=== PATIENT | female | born 2000 | race Caucasian/White ===

== ENCOUNTER 2022-12-15 10:45 | Emergency (ER) | payer OTHER ==
[2022-12-15] MEDS ORDERED: Sodium Chloride 0.9% 1000 ML 1,000 ML IV STA ×2 (11:05→11:29)
[2022-12-15] MEDS ORDERED: Reglan 10 MG/2 ML IV ONE (11:05)
[2022-12-15] MEDS ORDERED: Reglan 10 MG/2 ML ONE (11:14)
[2022-12-15] MEDS ORDERED: Sodium Chloride 0.9% 1000 ML 1,000 ML ONE ×2 (11:14→12:22)
[2022-12-15 11:20] LABS: Absolute Neutrophil Ct (ANC) 6.38 x10^3/uL (1.4-6.9); BASOPHIL % 0.6 % (0.0-0.4); Basophil (Absolute #) 0.05 x10^3/uL (0-0.4); Eosinophil % 1.3 % (0.00-5.0); Eosinophil (Absolute #) 0.11 x10^3/uL (0-0.5); Hematocrit 40.5 % (35-47); Hemoglobin 12.9 g/dL (12.0-16.0); IMMATURE GRAN # 0.03 x10^3u/L (0.00-0.03); IMMATURE GRAN % 0.3 % (0.00-0.4); Lymphocyte (Absolute #) 1.68 x10^3/uL (1.0-4.6); Lymphocytes % 19.1 % (24.0-44.0); Mean Corpuscular Hemoglobin 25.5 pg (26-32); Mean Corpuscular Hgb Concent. 31.9 g/dL (32-36); Mean Platelet Volume 9.1 fL (7.5-11.0); Monocyte (Absolute #) 0.54 x10^3/uL (0.0-1.3); Monocytes % 6.1 % (0.0-12.0); Neutrophil % 72.6 % (36.0-66.0); Platelet Count 315 x10^3/uL (150-450); Red Blood Count 5.06 x10^6/uL (4.1-5.4); Red Cell Distribution Width 13.4 % (11.5-14.0); White Blood Count 8.8 x10^3/uL (4.0-10.5)
[2022-12-15 11:39] LABS: ALBUMIN 4.6 g/dL (3.5-5.0); ALKALINE PHOSPHATASE 61 U/L (38-126); AMYLASE 66 U/L (30-110); ANION GAP 17.2 MEQ/L (5-15); BLOOD UREA NITROGEN 8 mg/dL (7-17); CHLORIDE 103 mmol/L (98-107); Calcium 9.6 mg/dL (8.4-10.2); Carbon Dioxide 22 mmol/L (22-30); Creatinine 1 0.67 mg/dL (0.52-1.04); EST GLOMERULAR FILTRATION RATE > 60.0 ML/MIN; Glucose 91 mg/dL (74-106); LIPASE 65 U/L (23-300); Potassium 3.7 mmol/L (3.5-5.1); SGOT/AST 20 U/L (14-36); SGPT/ALT 15 U/L (0-35); SODIUM 138 mmol/L (137-145); Total Protein 8.5 g/dL (6.3-8.2)
[2022-12-15 11:45] LABS: Appearance Cloudy (Clear); Bacteria Moderate /HPF (None Seen); Bilirubin Negative (Negative); Blood Negative (Negative); Epithelial Cells Moderate /HPF (None Seen); Glucose, Urine Negative (Negative); Ketones Negative (Negative); Leukocyte Esterase Small (Negative); Nitrite Negative (Negative); Protein,Urine Dip Trace (Negative); Specific Gravity >=1.030 (1.005-1.030); Urobilinogen 0.2 mg/dL (0.2); WBC 21-50 /HPF (0-5)
[2022-12-15 11:46] LABS: ADD URINE CULTURE? YES (NO)
[2022-12-15 11:49] VITALS: BP 114/69; PULSE 88; O2SAT 99
--- NOTE | 2022-12-15 12:39 | ERPHSYRPT ---
- History of Present Illness Time Seen by Provider: 12/15/22 10:55 Source: patient Exam Limitations: no limitations Patient Subjective Stated Complaint: Pt states "I have been vomiting for the past 4 to 5 weeks. I am 8 weeks and I just cannot keep anything down." Triage Nursing Assessment: Pt presented alert and and oriented X 3, skin pwd. Pt ambulates with an upright steady gait, able to speak in clear full sentences. Pt resting comfortablyon the bed. Physician History: Patient is a 22-year-old 1 para 0 at 8 weeks gestation who presents with hyperemesis gravidarum. She has not responded to Zofran. She is sent by Dr. Prasad to the ER for hydration. Timing/Duration: week(s) (5) Severity: severe Associated Symptoms: nausea, vomiting Allergies/Adverse Reactions: No Known Drug Allergies Allergy (Verified 12/15/22 10:58) Home Medications: Vortioxetine Hydrobromide [Brintellix] 10 mg PO DAILY 12/15/22 [History] Hx Tetanus, Diphtheria Vaccination/Date Given: Yes Hx Influenza Vaccination/Date Given: Yes Hx Pneumococcal Vaccination/Date Given: No Immunizations Up to Date: Yes Travel Risk - International Travel Have you traveled outside of the country in past 3 weeks: No - Coronavirus Screening Are you exhibiting any of the following symptoms?: Yes Symptoms: Vomiting/Diarrhea Close contact with a COVID-19 positive Pt in past 14-21 Days: No - Vaccine Status Have you recieved a Covid-19 vaccination: No Tissue Packer: Pfizer - Vaccination Dates Date of 2cond Vaccination (if applicable): 2020 - Review of Systems Constitutional: No Fever, No Chills Eyes: No Symptoms Ears, Nose, & Throat: No Symptoms Respiratory: No Cough, No Dyspnea Cardiac: No Chest Pain, No Edema, No Syncope Abdominal/Gastrointestinal: Nausea, Vomiting, No Abdominal Pain, No Diarrhea Genitourinary Symptoms: No Dysuria Musculoskeletal: No Back Pain, No Neck Pain Skin: No Rash Neurological: No Dizziness, No Focal Weakness, No Sensory Changes Psychological: No Symptoms Endocrine: No Symptoms All Other Systems: Reviewed and Negative - Past Medical History Pertinent Past Medical History: Yes Psycho-Social History: Depression - Past Surgical History Past Surgical History: No - Social History Smoking Status: Never smoker Exposure to second hand smoke: No Drug Use: none Patient Lives Alone: No - Female History Hx Last Menstrual Period: 10/20/2022 Hx Now: Yes Gestational Age: 8 week - Nursing Vital Signs Nursing Vital Signs: Initial Vital Signs Temperature 97.0 F 12/15/22 10:52 Pulse Rate 109 H 12/15/22 10:52 Respiratory Rate 20 12/15/22 10:52 Blood Pressure 116/86 12/15/22 10:52 O2 Sat by Pulse Oximetry 100 12/15/22 10:52 Pain Scale Pain Intensity 0 - Physical Exam General Appearance: mild distress, alert Eye Exam: PERRL/EOMI, eyes nml inspection Ears, Nose, Throat Exam: normal ENT inspection, TMs normal, pharynx normal, moist mucous membranes Neck Exam: normal inspection, non-tender, supple, full range of motion Respiratory Exam: normal breath sounds, lungs clear, No respiratory distress Cardiovascular Exam: regular rate/rhythm, normal heart sounds, normal peripheral pulses Gastrointestinal/Abdomen Exam: soft, normal bowel sounds, No tenderness, No mass Back Exam: normal inspection, normal range of motion, No CVA tenderness, No vertebral tenderness Extremity Exam: normal inspection, normal range of motion, pelvis stable Neurologic Exam: alert, oriented x 3, cooperative, normal mood/affect, nml cerebellar function, nml station & gait, sensation nml, No motor deficits Skin Exam: normal color, warm, dry, No rash Lymphatic Exam: No adenopathy SpO2: 99 - Course Nursing assessment & vital signs reviewed: Yes Ordered Tests: Active Orders 24 hr Category Date Time Status IV Insertion STAT Care 12/15/22 11:05 Active AMYLASE Stat Lab 12/15/22 11:16 Completed CBC W DIFF Stat Lab 12/15/22 11:16 Completed CMP Stat Lab 12/15/22 11:16 Completed CULTURE,URINE Stat Lab 12/15/22 11:16 Received LIPASE Stat Lab 12/15/22 11:16 Completed UA W/RFX UR CULTURE Stat Lab 12/15/22 11:16 Completed Medication Summary Discontinued Medications Generic Name Dose Route Start Last Admin Trade Name Freq PRN Reason Stop Dose Admin Sodium Chloride 1,000 mls @ 999 mls/hr 12/15/22 11:05 12/15/22 12:26 Sodium Chloride 0.9% 1000 Ml IV 12/15/22 12:05 Infused .Q1H1M STA Infusion Sodium Chloride Confirm 12/15/22 11:14 Sodium Chloride 0.9% 1000 Ml Administered 12/15/22 11:15 Dose 1,000 mls @ ud .ROUTE .STK-MED ONE Sodium Chloride 1,000 mls @ 999 mls/hr 12/15/22 11:29 12/15/22 12:23 Sodium Chloride 0.9% 1000 Ml IV 12/15/22 12:29 999 mls/hr .Q1H1M STA Administration Sodium Chloride Confirm 12/15/22 12:22 Sodium Chloride 0.9% 1000 Ml Administered 12/15/22 12:23 Dose 1,000 mls @ ud .ROUTE .STK-MED ONE Metoclopramide HCl 10 mg 12/15/22 11:05 12/15/22 11:15 Metoclopramide Hcl 10 Mg/2 Ml Vial IV 12/15/22 11:06 10 mg STAT ONE Administration Metoclopramide HCl Confirm 12/15/22 11:14 Metoclopramide Hcl 10 Mg/2 Ml Vial Administered 12/15/22 11:15 Dose 10 mg .ROUTE .STK-MED ONE Lab/Rad Data: Laboratory Result Diagrams 12/15/22 11:16 12/15/22 11:16 Laboratory Results 12/15/22 12/15/22 12/15/22 Range/Units 11:16 11:16 11:16 WBC 8.8 (4.0-10.5) x10^3/uL RBC 5.06 (4.1-5.4) x10^6/uL Hgb 12.9 (12.0-16.0) g/dL Hct 40.5 (35-47) % MCV 80.0 (78-100) fL MCH 25.5 L (26-32) pg MCHC 31.9 L (32-36) g/dL RDW 13.4 (11.5-14.0) % Plt Count 315 (150-450) x10^3/uL MPV 9.1 (7.5-11.0) fL Gran % 72.6 H (36.0-66.0) % Immature Gran % (Auto) 0.3 (0.00-0.4) % Nucleat RBC Rel Count 0.0 (0.00-0.1) % Eos # (Auto) 0.11 (0-0.5) x10^3/uL Immature Gran # (Auto) 0.03 (0.00-0.03) x10^3u/L Absolute Lymphs (auto) 1.68 (1.0-4.6) x10^3/uL Absolute Monos (auto) 0.54 (0.0-1.3) x10^3/uL Absolute Nucleated RBC 0.00 (0.00-0.01) x10^3u/L Lymphocytes % 19.1 L (24.0-44.0) % Monocytes % 6.1 (0.0-12.0) % Eosinophils % 1.3 (0.00-5.0) % Basophils % 0.6 (0.0-0.4) % Absolute Granulocytes 6.38 (1.4-6.9) x10^3/uL Basophils # 0.05 (0-0.4) x10^3/uL Sodium 138 (137-145) mmol/L Potassium 3.7 (3.5-5.1) mmol/L Chloride 103 (98-107) mmol/L Carbon Dioxide 22 (22-30) mmol/L Anion Gap 17.2 H (5-15) MEQ/L BUN 8 (7-17) mg/dL Creatinine 0.67 (0.52-1.04) mg/dL Estimated GFR > 60.0 ML/MIN Glucose 91 (74-106) mg/dL Calcium 9.6 (8.4-10.2) mg/dL Total Bilirubin 0.50 (0.2-1.3) mg/dL AST 20 (14-36) U/L ALT 15 (0-35) U/L Alkaline Phosphatase 61 (38-126) U/L Serum Total Protein 8.5 H (6.3-8.2) g/dL Albumin 4.6 (3.5-5.0) g/dL Amylase 66 (30-110) U/L Lipase 65 (23-300) U/L Urine Color Dark Yellow A (Yellow) Urine Appearance Cloudy A (Clear) Urine pH 5.0 (4.6-8.0) Ur Specific [place] >=1.030 A (1.005-1.030) Urine Protein Trace A (Negative) Urine Glucose (UA) Negative (Negative) mg/dL Urine Ketones Negative (Negative) Urine Blood Negative (Negative) Urine Nitrite Negative (Negative) Urine Bilirubin Negative (Negative) Urine Urobilinogen 0.2 (0.2) mg/dL Ur Leukocyte Esterase Small A (Negative) U Hyaline Cast (Auto) 3-5 A (0-2) /LPF Urine Microscopic RBC 3-5 (0-5) /HPF Urine Microscopic WBC 21-50 A (0-5) /HPF Ur Epithelial Cells Moderate A (None Seen) /HPF Calcium Oxalate Crystal 3-5 A (None Seen) /HPF Urine Bacteria Moderate A (None Seen) /HPF Urine Culture Reflexed YES (NO) - Progress Progress: improved Medical Desision Making - Diagnostic Testing Diagnostic test were ordered, analyzed, and reviewed by me: Yes - Risk of complications Low Risk: Low risk of morbidity from additional dx testing or treatment - Departure Departure Disposition: Home Clinical Impression: Hyperemesis gravidarum, Urinary tract infection affecting care of mother in first trimester, antepartum Condition: Stable Critical Care Time: No Referrals: OBED PRASAD DO [Primary Care Provider] - Follow up/PCP as directed Prescriptions: Cephalexin Mh 500 mg [Keflex 500 mg] 500 mg PO TID #21 cap Metoclopramide HCl 10 mg [Reglan 10 MG] 10 mg PO Q6H 10 Days #40 tablet
== END 2022-12-15 13:35 | disposition home or self-care (01) ==
LOC: ED 10:45
DX: O21.0 Mild hyperemesis gravidarum (principal); O23.41 Unspecified infection of urinary tract in pregnancy, first trimester; N39.0 Urinary tract infection, site not specified; Z3A.08 8 weeks gestation of pregnancy; Z79.899 Other long term (current) drug therapy
CPT/HCPCS: 36000; 36415; 80053; 81001; 82150; 83690; 85025; 87086; 96360; 96361; 96374; 99284

== ENCOUNTER 2023-01-02 14:55 | Emergency (ER) | payer OTHER ==
--- NOTE | 2023-01-02 15:11 | ERPHSYRPT ---
- History of Present Illness Time Seen by Provider: 01/02/23 15:11 Historian: patient, family Exam Limitations: no limitations Physician History: This is a 22-year-old white female patient of salesperson women's [employer] Dr. Prasad who she saw today in the office. Patient has a history of hyperemesis gravidarum. She was seen here in this emergency department for the same diagnosis on 12/15/2022. At that time she was approximately 8 weeks gestation. She had a urinary tract infection at that time. She was given a prescription of Keflex and Reglan orally. Patient states that she did use the Reglan but did not like its side effects and therefore wants to avoid the Reglan. Patient denies chest pain. She denies cough. She has no abdominal pain. She has had no abnormal vaginal discharge. We reviewed the clinic labs that were done and were visible. The only thing we could see that was performed today was a CBC. Patient and her salesperson women's dresses were concerned that she may be getting dehydrated after 2 episodes of vomiting this morning. Timing/Duration: today (Significant other) Activities at Onset: none Severity of Pain-Max: none Severity of Pain-Current: none Modifying Factors: Improves With: vomiting (X2) Associated Symptoms: nausea, vomiting, No diarrhea, No fever/chills, No shortness of breath, No weakness Previous symptoms: recently seen Allergies/Adverse Reactions: No Known Drug Allergies Allergy (Verified 01/02/23 15:17) Home Medications: Vortioxetine Hydrobromide [Brintellix] 10 mg PO DAILY 12/15/22 [History] Ondansetron ODT 4 MG [Zofran Odt 4 mg] 4 mg PO Q8H PRN PRN 01/02/23 [History] Hx Tetanus, Diphtheria Vaccination/Date Given: Yes Hx Influenza Vaccination/Date Given: Yes Hx Pneumococcal Vaccination/Date Given: No Travel Risk - International Travel Have you traveled outside of the country in past 3 weeks: No - Coronavirus Screening Are you exhibiting any of the following symptoms?: Yes Symptoms: Vomiting/Diarrhea Close contact with a COVID-19 positive Pt in past 14-21 Days: No - Vaccine Status Have you recieved a Covid-19 vaccination: No Roll Repairer: [employer]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[employer] Keeper - Vaccination Dates Date of 2cond Vaccination (if applicable): 2020 - Review of Systems Constitutional: No Symptoms Eyes: No Symptoms Ears, Nose, & Throat: No Symptoms Respiratory: No Symptoms Cardiac: No Symptoms Abdominal/Gastrointestinal: Nausea, Vomiting, No Abdominal Pain, No Diarrhea, No Constipation Genitourinary Symptoms: Musculoskeletal: No Symptoms Skin: No Symptoms Neurological: No Symptoms Psychological: No Symptoms Endocrine: No Symptoms Hematologic/Lymphatic: No Symptoms Immunological/Allergic: No Symptoms All Other Systems: Reviewed and Negative - Past Medical History Pertinent Past Medical History: Yes Psycho-Social History: Depression - Past Surgical History Past Surgical History: No - Social History Smoking Status: Never smoker Exposure to second hand smoke: No Drug Use: none Patient Lives Alone: No - Nursing Vital Signs Nursing Vital Signs: Initial Vital Signs Temperature 97.4 F 01/02/23 15:08 Pulse Rate 114 H 01/02/23 15:08 Blood Pressure 104/84 01/02/23 15:08 O2 Sat by Pulse Oximetry 96 01/02/23 15:08 Pain Scale Pain Intensity 0 - Physical Exam General Appearance: no apparent distress, alert, anxiety Eye Exam: PERRL/EOMI, eyes nml inspection Ears, Nose, Throat Exam: normal ENT inspection, moist mucous membranes Neck Exam: normal inspection, non-tender, supple, full range of motion Respiratory Exam: normal breath sounds, lungs clear, airway intact, No chest tenderness, No respiratory distress Cardiovascular Exam: tachycardia Gastrointestinal/Abdomen Exam: soft, normal bowel sounds, No tenderness Pelvic Exam: not done Rectal Exam: not done Back Exam: normal inspection, normal range of motion, No CVA tenderness, No vertebral tenderness Extremity Exam: normal inspection, normal range of motion, pelvis stable Neurologic Exam: alert, oriented x 3, cooperative, clean up supervisor II-XII nml as tested, normal mood/affect, nml cerebellar function, nml station & gait, sensation nml Skin Exam: normal color, warm, dry Lymphatic Exam: No adenopathy SpO2 Interpretation: normal O2 Delivery: Room Air - Course Nursing assessment & vital signs reviewed: Yes Ordered Tests: Active Orders 24 hr Category Date Time Status IV Insertion STAT Care 01/02/23 15:31 Active AMYLASE Stat Lab 01/02/23 15:00 Completed CMP Stat Lab 01/02/23 15:00 Completed LIPASE Stat Lab 01/02/23 15:00 Completed UA W/RFX UR CULTURE Stat Lab 01/02/23 16:01 Ordered Medication Summary Generic Name Dose Route Start Last Admin Trade Name Nathalie PRN Reason Stop Dose Admin Sodium Chloride 500 mls @ 500 mls/hr 01/02/23 16:46 01/02/23 16:47 Sodium Chloride 0.9% 500 Ml IV 01/02/23 17:45 500 mls/hr .Q1H ONE Administration Discontinued Medications Generic Name Dose Route Start Last Admin Trade Name Nathalie PRN Reason Stop Dose Admin Sodium Chloride 1,000 mls @ 999 mls/hr 01/02/23 15:31 01/02/23 16:45 Sodium Chloride 0.9% 1000 Ml IV 01/02/23 16:31 Infused .Q1H1M STA Infusion Sodium Chloride Confirm 01/02/23 15:40 Sodium Chloride 0.9% 1000 Ml Administered 01/02/23 15:41 Dose 1,000 mls @ ud .ROUTE .STK-MED ONE Sodium Chloride Confirm 01/02/23 16:47 Sodium Chloride 0.9% 500 Ml Administered 01/02/23 16:48 Dose 500 mls @ ud IV .STK-MED ONE Ondansetron HCl 4 mg 01/02/23 15:31 01/02/23 15:42 Ondansetron Hcl 4 Mg/2 Ml Vial IV 01/02/23 15:32 4 mg STAT ONE Administration Ondansetron HCl Confirm 01/02/23 15:40 Ondansetron Hcl 4 Mg/2 Ml Vial Administered 01/02/23 15:41 Dose 4 mg .ROUTE .STK-MED ONE Lab/Rad Data: Laboratory Result Diagrams 01/02/23 15:00 Laboratory Results 01/02/23 Range/Units 15:00 Sodium 135 L (137-145) mmol/L Potassium 3.2 L (3.5-5.1) mmol/L Chloride 102 (98-107) mmol/L Carbon Dioxide 20 L (22-30) mmol/L Anion Gap 15.8 H (5-15) MEQ/L BUN 7 (7-17) mg/dL Creatinine 0.61 (0.52-1.04) mg/dL Estimated GFR > 60.0 ML/MIN Glucose 142 H (74-106) mg/dL Calcium 9.5 (8.4-10.2) mg/dL Total Bilirubin 0.40 (0.2-1.3) mg/dL AST 24 (14-36) U/L ALT 16 (0-35) U/L Alkaline Phosphatase 55 (38-126) U/L Serum Total Protein 7.6 (6.3-8.2) g/dL Albumin 4.1 (3.5-5.0) g/dL Amylase 62 (30-110) U/L Lipase 63 (23-300) U/L - Progress Progress: improved Progress Note: 01/02/23 17:35 Patient's medical history is 1 of moderate complexity. The level of complexity and the work-up performed is based on the review review of the patient's past medical history, review of the patient's medication list, review of the patient's drug allergy list, history present illness and physical findings on examination. Work-up in this patient includes review of the patient's last visit here in the emergency department and the review of the patient's obstetric clinic visit today. In addition we placed an intravenous line, infused 1-1/2 L of normal saline solution, checked a CMP, amylase and lipase. I reviewed the results. Patient has no acute emergent medical issue at this time. Patient has Zofran at home. She will follow-up with her salesperson women[employer] dresses on 01/05/2023. P darrian can use her Zofran as prescribed. Patient is to start off with clear liquids then advance her diet slowly Counseled pt/family regarding: lab results, diagnosis, need for follow-up Medical Desision Making - Independent Historian Additional History obtained from: Spouse - Diagnostic Testing Diagnostic test were ordered, analyzed, and reviewed by me: Yes - Risk of complications Minimal Risk: Minimal risk of morbidity - Departure Departure Disposition: Home Clinical Impression: Vomiting during , Mild dehydration Condition: Stable Critical Care Time: No Referrals: MIRTA FOLEY MD [Primary Care Provider] - Follow up/PCP as directed Additional Instructions: Clear liquid diet and then advance your diet slowly. Use your Zofran as prescri bed. Follow-up with your salesperson women[employer] dresses on 01/05/2023 for further evaluation and management.
[2023-01-02] MEDS ORDERED: Zofran 4 MG/2 ML VIAL IV ONE (15:31)
[2023-01-02] MEDS ORDERED: Sodium Chloride 0.9% 1000 ML 1,000 ML IV STA (15:31)
[2023-01-02] MEDS ORDERED: Zofran 4 MG/2 ML VIAL ONE (15:40)
[2023-01-02] MEDS ORDERED: Sodium Chloride 0.9% 1000 ML 1,000 ML ONE (15:40)
[2023-01-02 16:29] LABS: ALBUMIN 4.1 g/dL (3.5-5.0); ALKALINE PHOSPHATASE 55 U/L (38-126); AMYLASE 62 U/L (30-110); ANION GAP 15.8 MEQ/L (5-15); BLOOD UREA NITROGEN 7 mg/dL (7-17); CHLORIDE 102 mmol/L (98-107); Calcium 9.5 mg/dL (8.4-10.2); Carbon Dioxide 20 mmol/L (22-30); Creatinine 1 0.61 mg/dL (0.52-1.04); EST GLOMERULAR FILTRATION RATE > 60.0 ML/MIN; Glucose 142 mg/dL (74-106); LIPASE 63 U/L (23-300); Potassium 3.2 mmol/L (3.5-5.1); SGOT/AST 24 U/L (14-36); SGPT/ALT 16 U/L (0-35); SODIUM 135 mmol/L (137-145); Total Protein 7.6 g/dL (6.3-8.2)
[2023-01-02] MEDS ORDERED: Sodium Chloride 0.9% 500 ML 500 ML IV ONE ×2 (16:46→16:47)
[2023-01-02 17:07] VITALS: BP 95/71; PULSE 91; O2SAT 99
== END 2023-01-02 17:56 | disposition home or self-care (01) ==
LOC: ED 14:55
DX: O21.9 Vomiting of pregnancy, unspecified (principal); Z3A.11 11 weeks gestation of pregnancy; E86.0 Dehydration; Z79.899 Other long term (current) drug therapy
CPT/HCPCS: 36000; 36415; 80053; 82150; 83690; 96360; 96361; 96374; 99284; J2405

== ENCOUNTER 2023-07-21 02:00 | Inpatient (IN) | payer OTHER, MEDICAID ==
[2023-07-21] MEDS ORDERED: Nubain 10 MG/ML IV PRN (07:00)
[2023-07-21] MEDS ORDERED: STADOL 2 MG IV PRN (07:00)
[2023-07-21] MEDS ORDERED: Zofran 4 MG/2 ML VIAL IV PRN (07:00)
[2023-07-21 08:24] LABS: Absolute Neutrophil Ct (ANC) 5.31 x10^3/uL (1.4-6.9); BASOPHIL % 0.5 % (0.0-0.4); Basophil (Absolute #) 0.04 x10^3/uL (0-0.4); Eosinophil % 1.8 % (0.00-5.0); Eosinophil (Absolute #) 0.14 x10^3/uL (0-0.5); Hemoglobin 9.3 g/dL (12.0-16.0); IMMATURE GRAN # 0.03 x10^3u/L (0.00-0.03); IMMATURE GRAN % 0.4 % (0.00-0.4); Lymphocyte (Absolute #) 1.81 x10^3/uL (1.0-4.6); Lymphocytes % 23.4 % (24.0-44.0); Mean Cell Volume 75.4 fL (78-100); Mean Corpuscular Hemoglobin 23.4 pg (26-32); Mean Platelet Volume 11.1 fL (7.5-11.0); Monocytes % 5.2 % (0.0-12.0); Neutrophil % 68.7 % (36.0-66.0); Platelet Count 235 x10^3/uL (150-450); Red Blood Count 3.98 x10^6/uL (4.1-5.4); Red Cell Distribution Width 14.8 % (11.5-14.0); White Blood Count 7.7 x10^3/uL (4.0-10.5)
[2023-07-21 08:58] LABS: Amphetamine,Urine NEGATIVE (NEGATIVE); Barbiturate,Urine NEGATIVE (NEGATIVE); Benzodiazepine,Urine NEGATIVE (NEGATIVE); Cocaine,Urine NEGATIVE (NEGATIVE); Methadone,Urine NEGATIVE (NEGATIVE); Opiate,Urine NEGATIVE (NEGATIVE); PCP,Urine NEGATIVE (NEGATIVE); THC,Urine NEGATIVE (NEGATIVE)
[2023-07-21 09:18] LABS: ABO TYPING A; Antibody Screen NEGATIVE (NEGATIVE); RH TYPING POSITIVE
[2023-07-21] MEDS: Lactated Ringers 1,000 ML IV SCH ×2 (14:00→20:51)
[2023-07-21] MEDS ORDERED: Lactated Ringers 1,000 ML IV ONE (19:00)
[2023-07-21] MEDS ORDERED: Ephedrine Sulfate 50 MG/ML IV PRN (19:00)
[2023-07-21] MEDS ORDERED: FENTANYL 2 MCG-BUPIV 0.125%-NS 250 ML Epidur 250 ML EPIDURAL SCH (19:00)
[2023-07-21] MEDS ORDERED: TUCKS TP PRN (22:00)
[2023-07-22] MEDS ORDERED: CEFAZOLIN 2 GM-D5W BAG** 2 GM/50 ML ML IV ONE (02:11)
[2023-07-22] MEDS ORDERED: Reglan 10 MG/2 ML IV SCH (02:15)
[2023-07-22] MEDS ORDERED: Pepcid 20 MG VIAL IV SCH (02:15)
[2023-07-22] MEDS ORDERED: SOD CITRATE-CITRIC ACID SOLN PO SCH (02:15)
[2023-07-22] MEDS: Lactated Ringers 1,000 ML IV SCH (02:23)
[2023-07-22] MEDS ORDERED: CEFAZOLIN 2 GM-D5W BAG** 2 GM/50 ML ML IV SCH (02:30)
[2023-07-22 02:35] LABS: INR 0.88 (0.8-3.0); PROTIME 9.7 SECONDS (9.4-12.5); PTT 24.4 SECONDS (25.1-36.5)
[2023-07-22] MEDS ORDERED: TORAdol 30 mg Injection ONE (02:37)
[2023-07-22] MEDS ORDERED: Decadron 4 MG INJ ONE ×2 (02:37→03:06)
[2023-07-22] MEDS ORDERED: SUBLIMAZE 100 MCG/2 ML ONE ×2 (02:37→03:38)
[2023-07-22] MEDS ORDERED: Zofran 4 MG/2 ML VIAL ONE (02:37)
[2023-07-22] MEDS ORDERED: BRIDION 200MG/2ML IV ONE (02:37)
[2023-07-22] MEDS ORDERED: Xylocaine-Mpf 2% 5 Ml Vial ONE (02:37)
[2023-07-22] MEDS ORDERED: DIPRIVAN 200 MG/20 ML IV ONE (02:37)
[2023-07-22] MEDS ORDERED: Zemuron 100 MG/10 ML ONE (02:37)
[2023-07-22] MEDS ORDERED: Pitocin 10 UNITS/ML ONE (03:00)
[2023-07-22] MEDS ORDERED: Ephedrine Sulfate 50 MG/ML ONE (03:04)
[2023-07-22] MEDS ORDERED: Naropin 0.5% 30 ML VIAL ONE (03:06)
[2023-07-22] MEDS ORDERED: DEXMEDETOMIDINE 80 MCG/20ML-NS IV ONE (03:06)
[2023-07-22] MEDS ORDERED: Hydromorphone 1 mg/ml Injection ONE (03:38)
[2023-07-22] MEDS ORDERED: CLARITIN 10 MG PO PRN (04:00)
[2023-07-22] MEDS ORDERED: BENADRYL 50 MG/ML IV PRN (04:00)
[2023-07-22] MEDS ORDERED: Narcan 0.4 MG/ML IV PRN (04:00)
[2023-07-22] MEDS ORDERED: HOLD NARCOTIC ANALGESICS AND SEDATIVES X24 HR MC PRN (04:00)
[2023-07-22] MEDS ORDERED: DEMEROL 50 MG IV PRN (04:00)
[2023-07-22] MEDS ORDERED: PERCOCET TABLET 5/325MG PO PRN (04:00)
[2023-07-22] MEDS ORDERED: MORPHINE SULFATE 2 MG INJ IV PRN (04:00)
[2023-07-22 04:49] LABS: Bacteria None Seen /HPF (None Seen); Epithelial Cells Rare /HPF (None Seen); Hyaline Casts NONE SEEN /LPF (0-2); RBC 51-100 /HPF (0-5)
[2023-07-22 04:50] LABS: Appearance Clear (Clear); Bilirubin Negative (Negative); Ketones Negative (Negative); Leukocyte Esterase Negative (Negative); Nitrite Negative (Negative); Protein,Urine Dip Negative (Negative); Urobilinogen 0.2 mg/dL (0.2)
[2023-07-22 04:51] LABS: ADD URINE CULTURE? ORDERED SEPARATELY (NO); Blood Moderate (Negative); Glucose, Urine Negative (Negative)
[2023-07-22] MEDS ORDERED: LANSINOH 40 GM TOP PRN (08:00)
[2023-07-22] MEDS ORDERED: PITOCIN 30 UNITS/ LR 500 ML 30 UNITS/500 ML PLAST..BAG IV SCH ×2 (08:00→09:00)
[2023-07-22] MEDS ORDERED: Dermoplast Spray TP PRN (08:00)
[2023-07-22] MEDS ORDERED: Dextrose 5%-Lr IV Solution 1000 ML 1,000 ML IV SCH (08:00)
[2023-07-22] MEDS ORDERED: TYLENOL EXTRA STRENGTH 500 MG PO PRN (08:00)
[2023-07-22] MEDS: Docusate Sodium 100 MG PO SCH (09:10)
--- NOTE | 2023-07-22 09:42 | OP ---
SURGERY DATE/TIME: 07/22/2023 0237 PREOPERATIVE DIAGNOSIS: Intrauterine at 39 weeks and 5 days with non-reassuring heart rate tracing with repetitive deceleration. POSTOPERATIVE DIAGNOSIS: Intrauterine at 39 weeks and 5 days with non-reassuring heart rate tracing with repetitive deceleration with a true knot in the nuchal cord with meconium noted. PROCEDURE: Primary section, low flap transverse uterine incision, Pfannenstiel skin incision. SURGEON: Nico Prasad D.O. WELDER 2ND SHIFT: Mirian Denton, surgical technicians. ANESTHESIA: General. QUANTITATIVE BLOOD LOSS: 951 cc. COMPLICATIONS: None. INDICATIONS: The risks, benefits, indications and alternatives of the procedure were reviewed with the patient prior to the procedure. The patient understood the risk of infection, bleeding, bowel injury, bladder injury, pelvic infection and thromboembolic disorder associated with this surgery and desires to have this surgery as a possible means to alleviate her current medical condition. DESCRIPTION OF PROCEDURE AND FINDINGS: At this point the patient was taken in STAT situation to the operating room where she was given general anesthesia and was found to be adequate. She was then prepared and draped in normal sterile fashion in the dorsal supine position with leftward tilt. A Pfannenstiel skin incision is made with a scalpel and carried through to the underlying layer of the fascia with a Bovie. The fascia was then incised in the midline and the incision extended laterally with Clark scissors. The superior aspect of the fascial incision was then grasped Emiliano clamps elevated and the underlying rectus muscles dissected off bluntly. Attention is then turned to the inferior aspect of this incision which in similar fashion was grasped, tented up with Emiliano clamps and the rectus muscles dissected off bluntly. The rectus muscles were then at the midline and the peritoneum identified, tented up and entered sharply with Metzenbaum scissors. The peritoneal incision was then extended superiorly and inferiorly with good visualization of the bladder. The bladder blade was then inserted and vesicouterine peritoneum identified, grasped with pickups and entered sharply with Metzenbaum scissors. This incision was then extended laterally and bladder flap created digitally. The bladder blade was then reinserted and the lower uterine segment incised in transverse fashion with a scalpel. The uterine incision was then extended laterally with bandage scissors. The bladder blade was then removed and infants head was delivered atraumatically and was noted to have a true knot, loose nuchal cord and meconium that was noted. The nose and mouth were suctioned with bulb suction and the cord clamped and cut. The infant was handed off to the awaiting nurses and family provider. The placenta was then removed manually. The uterus exteriorized and cleared of all clots and debris. The uterine incision was repaired with 1-0 chromic in a running locked fashion. A second layer of the same suture was used to obtain excellent hemostasis. The uterus is then returned to the abdomen. The gutters were cleared of clots and the peritoneal muscles were closed in interrupted fashion using 2-0 chromic suture. The fascia was re-approximated with 0 Vicryl in a running fashion. The subcutaneous layer was closed with 3-0 Vicryl suture and the skin was closed with absorbable boris called INSORB. The patient tolerated the procedure well. Sponge, lap, needle and instrument counts were correct x2. The patient was then taken to the recovery room in stable condition. The patient delivered a live baby boy at 0451 hours. 's were 7 at 1 minute and 8 at 5 minutes.
[2023-07-22] MEDS ORDERED: FERREX 150 PO SCH (10:00)
[2023-07-22] MEDS ORDERED: MOTRIN 400 MG PO PRN (10:00)
[2023-07-22] MEDS ORDERED: CORTISONE 1% CREAM TP PRN (10:00)
[2023-07-22] MEDS ORDERED: Mylicon 80MG PO PRN (10:00)
[2023-07-22] MEDS: KEFZOL 1 GM/50 ML PREMIX** 1 GM/50 ML IVPB IV SCH ×2 (10:53→18:29)
[2023-07-22 15:21] LABS: Absolute Neutrophil Ct (ANC) 16.85 x10^3/uL (1.4-6.9); BASOPHIL % 0.1 % (0.0-0.4); Basophil (Absolute #) 0.02 x10^3/uL (0-0.4); Eosinophil % 0.1 % (0.00-5.0); Eosinophil (Absolute #) 0.01 x10^3/uL (0-0.5); Hematocrit 25.5 % (35-47); Hemoglobin 7.9 g/dL (12.0-16.0); IMMATURE GRAN # 0.09 x10^3u/L (0.00-0.03); IMMATURE GRAN % 0.5 % (0.00-0.4); Lymphocyte (Absolute #) 0.74 x10^3/uL (1.0-4.6); Mean Cell Volume 76.6 fL (78-100); Mean Corpuscular Hemoglobin 23.7 pg (26-32); Mean Platelet Volume 10.8 fL (7.5-11.0); Monocyte (Absolute #) 0.61 x10^3/uL (0.0-1.3); Monocytes % 3.3 % (0.0-12.0); Platelet Count 231 x10^3/uL (150-450); Red Blood Count 3.33 x10^6/uL (4.1-5.4); Red Cell Distribution Width 15.2 % (11.5-14.0); White Blood Count 18.3 x10^3/uL (4.0-10.5)
[2023-07-22] MEDS: FEOSOL 325 MG PO SCH (16:30)
[2023-07-23 05:17] LABS: Absolute Neutrophil Ct (ANC) 11.39 x10^3/uL (1.4-6.9); BASOPHIL % 0.1 % (0.0-0.4); Basophil (Absolute #) 0.02 x10^3/uL (0-0.4); Eosinophil % 0.2 % (0.00-5.0); Eosinophil (Absolute #) 0.03 x10^3/uL (0-0.5); Hematocrit 22.8 % (35-47); IMMATURE GRAN # 0.09 x10^3u/L (0.00-0.03); IMMATURE GRAN % 0.6 % (0.00-0.4); Lymphocyte (Absolute #) 2.74 x10^3/uL (1.0-4.6); Lymphocytes % 18.2 % (24.0-44.0); Mean Cell Volume 76.3 fL (78-100); Mean Corpuscular Hemoglobin 23.4 pg (26-32); Mean Corpuscular Hgb Concent. 30.7 g/dL (32-36); Mean Platelet Volume 10.9 fL (7.5-11.0); Monocyte (Absolute #) 0.81 x10^3/uL (0.0-1.3); Monocytes % 5.4 % (0.0-12.0); Neutrophil % 75.5 % (36.0-66.0); Platelet Count 247 x10^3/uL (150-450); Red Blood Count 2.99 x10^6/uL (4.1-5.4); Red Cell Distribution Width 15.5 % (11.5-14.0); White Blood Count 15.1 x10^3/uL (4.0-10.5)
--- NOTE | 2023-07-23 07:48 | PCM.NOTE ---
Date and Time: 07/23/23746 Subjective Assessment: pod 1 sp csection pt resting in her chair able to ambulate and tolerate diet vss afebrile abd; soft incision c/d/intact uterus; firm lochia; mild hgb/ 7.0 a/p sp csection pod 1 with anemia will anticipate discharge tomorrow will continue iron supplementation tid OBJECTIVE DATA Vital Signs: Vital Signs - 24 hr Temp Pulse Resp BP Pulse Ox 07/23/23 04:00 98.1 F 90 20 124/73 98 07/22/23 19:37 98.4 F 115 H 16 125/81 98 07/22/23 15:00 98 07/22/23 14:00 98.2 F 92 H 18 120/76 98 07/22/23 13:00 99 07/22/23 12:00 100 07/22/23 11:00 99 07/22/23 10:00 100 07/22/23 09:00 98 07/22/23 08:00 97.7 F 64 18 134/83 99 Pain Assessment - Last Documented Pain Intensity [Anterior] 7 Pain Intensity 1 Pain Scale Used 0-10 Pain Scale Intake and Output: Intake & Output 07/20/23 07/21/23 07/22/23 07/23/23 11:59 11:59 11:59 11:59 Intake Total 4897 1700 Output Total 1222 600 Balance 3675 1100 Weight 83.915 kg 83.915 kg Lab Results: Lab Results-Last 24 Hours 07/22/23 07/23/23 Range/Units 15:15 05:05 WBC 18.3 H 15.1 H (4.0-10.5) x10^3/uL RBC 3.33 L 2.99 L (4.1-5.4) x10^6/uL Hgb 7.9 L 7.0 L* (12.0-16.0) g/dL Hct 25.5 L 22.8 L (35-47) % MCV 76.6 L 76.3 L (78-100) fL MCH 23.7 L 23.4 L (26-32) pg MCHC 31.0 L 30.7 L (32-36) g/dL RDW 15.2 H 15.5 H (11.5-14.0) % Plt Count 231 247 (150-450) x10^3/uL MPV 10.8 10.9 (7.5-11.0) fL Gran % 92.0 H 75.5 H (36.0-66.0) % Immature Gran % (Auto) 0.5 H 0.6 H (0.00-0.4) % Nucleat RBC Rel Count 0.0 0.0 (0.00-0.1) % Eos # (Auto) 0.01 0.03 (0-0.5) x10^3/uL Immature Gran # (Auto) 0.09 H 0.09 H (0.00-0.03) x10^3u/L Absolute Lymphs (auto) 0.74 L 2.74 (1.0-4.6) x10^3/uL Absolute Monos (auto) 0.61 0.81 (0.0-1.3) x10^3/uL Absolute Nucleated RBC 0.00 0.00 (0.00-0.01) x10^3u/L Lymphocytes % 4.0 L 18.2 L (24.0-44.0) % Monocytes % 3.3 5.4 (0.0-12.0) % Eosinophils % 0.1 0.2 (0.00-5.0) % Basophils % 0.1 0.1 (0.0-0.4) % Absolute Granulocytes 16.85 H 11.39 H (1.4-6.9) x10^3/uL Basophils # 0.02 0.02 (0-0.4) x10^3/uL Assessment/Plan (1) Status post primary low transverse section Current Visit: Yes Status: Acute Code(s): Z98.891 - HISTORY OF UTERINE SCAR FROM PREVIOUS SURGERY
[2023-07-23] MEDS: Docusate Sodium 100 MG PO SCH ×2 (08:56→21:03)
[2023-07-23] MEDS: TYLENOL EXTRA STRENGTH 500 MG PO PRN ×4 (08:56→23:45)
[2023-07-23] MEDS: FEOSOL 325 MG PO SCH ×3 (08:57→21:03)
[2023-07-23] MEDS ORDERED: ZOFRAN ODT 4 MG PO PRN (09:48)
[2023-07-23] MEDS ORDERED: NON-FORMULARY ITEM (Vortioxetine Hydrobromide [Trintellix] 10 MG Tablet) PO SCH (10:00)
[2023-07-23] MEDS ORDERED: Adacel Vial IM ONE (10:00)
[2023-07-23] MEDS ORDERED: MEDICATION INTERVENTION MC SCH (10:00)
[2023-07-23] MEDS: PATIENT OWN MEDICATION PO SCH (10:29)
[2023-07-23 20:32] VITALS: O2SAT 100
[2023-07-24 03:30] VITALS: RESP 18
[2023-07-24 05:12] LABS: BASOPHIL % 0.4 % (0.0-0.4); Basophil (Absolute #) 0.05 x10^3/uL (0-0.4); Eosinophil % 2.2 % (0.00-5.0); Eosinophil (Absolute #) 0.27 x10^3/uL (0-0.5); Hematocrit 22.8 % (35-47); IMMATURE GRAN # 0.07 x10^3u/L (0.00-0.03); IMMATURE GRAN % 0.6 % (0.00-0.4); Lymphocytes % 19.8 % (24.0-44.0); Mean Corpuscular Hemoglobin 22.6 pg (26-32); Mean Corpuscular Hgb Concent. 29.4 g/dL (32-36); Mean Platelet Volume 10.7 fL (7.5-11.0); Monocyte (Absolute #) 0.63 x10^3/uL (0.0-1.3); Monocytes % 5.2 % (0.0-12.0); Neutrophil % 71.8 % (36.0-66.0); Platelet Count 250 x10^3/uL (150-450); Red Blood Count 2.96 x10^6/uL (4.1-5.4); Red Cell Distribution Width 15.7 % (11.5-14.0); White Blood Count 12.1 x10^3/uL (4.0-10.5)
[2023-07-24 05:16] LABS: Hemoglobin 6.7 g/dL (12.0-16.0)
--- NOTE | 2023-07-24 07:57 | PCM.NOTE ---
Date and Time: 07/24/23 0756 Subjective Assessment: pod 2 sp csection pt resting in bed and doing well able to ambulate and tolerate diet vss afebrile abd; soft incision c/d/intact uterus; firm lochia; mild hgb. 6.7 stable a/p sp csection pod 2 dc home today iron supplementation tid declines transfusion or iron transfusion pt asymptomatic OBJECTIVE DATA Vital Signs: Vital Signs - 24 hr Temp Pulse Resp BP Pulse Ox 07/24/23 02:00 97.9 F 73 18 115/78 100 07/23/23 20:00 97.8 F 108 H 20 124/75 100 07/23/23 18:00 97.7 F 95 H 20 123/82 98 07/23/23 09:49 97.6 F 86 18 115/79 97 Pain Assessment - Last Documented Pain Intensity [Anterior] 7 Pain Intensity 2 Pain Scale Used 0-10 Pain Scale Intake and Output: Intake & Output 07/21/23 07/22/23 07/23/23 07/24/23 11:59 11:59 11:59 11:59 Intake Total 4897 1700 200 Output Total 1222 600 Balance 3675 1100 200 Weight 83.915 kg 83.915 kg Lab Results: Lab Results-Last 24 Hours 07/24/23 Range/Units 04:14 WBC 12.1 H (4.0-10.5) x10^3/uL RBC 2.96 L (4.1-5.4) x10^6/uL Hgb 6.7 L* (12.0-16.0) g/dL Hct 22.8 L (35-47) % MCV 77.0 L (78-100) fL MCH 22.6 L (26-32) pg MCHC 29.4 L (32-36) g/dL RDW 15.7 H (11.5-14.0) % Plt Count 250 (150-450) x10^3/uL MPV 10.7 (7.5-11.0) fL Gran % 71.8 H (36.0-66.0) % Immature Gran % (Auto) 0.6 H (0.00-0.4) % Nucleat RBC Rel Count 0.0 (0.00-0.1) % Eos # (Auto) 0.27 (0-0.5) x10^3/uL Immature Gran # (Auto) 0.07 H (0.00-0.03) x10^3u/L Absolute Lymphs (auto) 2.40 (1.0-4.6) x10^3/uL Absolute Monos (auto) 0.63 (0.0-1.3) x10^3/uL Absolute Nucleated RBC 0.00 (0.00-0.01) x10^3u/L Lymphocytes % 19.8 L (24.0-44.0) % Monocytes % 5.2 (0.0-12.0) % Eosinophils % 2.2 (0.00-5.0) % Basophils % 0.4 (0.0-0.4) % Absolute Granulocytes 8.70 H (1.4-6.9) x10^3/uL Basophils # 0.05 (0-0.4) x10^3/uL Assessment/Plan (1) Status post primary low transverse section Current Visit: Yes Status: Acute Code(s): Z98.891 - HISTORY OF UTERINE SCAR FROM PREVIOUS SURGERY
--- NOTE | 2023-07-24 08:02 | PCM.DS ---
Discharge Summary Date of Admission: 07/22/23 02:00 Admitting Physician: OBED RENDON DO Consults: Consults on Case 07/21/23 19:00 Notify Anesthesia Provider PRN 07/22/23 09:00 Notify Physician ROUTINE Primary Care Provider: MIRTA FOLEY MD Allergies Allergies No Known Drug Allergies Allergy (Verified 01/02/23 15:17) Hospital Summary - Hospital Course Hospital Course: pt admitted on jul 21 at 39 4/7 wks gestation for induction with vaginal cytotec. pt was noted having nonreasurring heart rate tracing on on jul 22 at 2 am and was determined to proceed with primary csection. pt underwent csection and deivered baby boy and was noted having a true knot and meconium upon delivery. pt during postop period did well and was noted having a hgb of 6.7 postop however remained asymptomatic and had preop hgb at 9.3. pt declined narcotic for pain management and will continue taking iron supplementation tid upon discharge. pt was advised to fu for incision check in [address] morillo. all questions answered to her satisfaction. at this time stable for discharge. - Vitals & Intake/Output Vital Signs: Vital Signs Temperature 97.9 F 07/24/23 02:00 Pulse Rate 73 07/24/23 02:00 Respiratory Rate 18 07/24/23 02:00 Blood Pressure 115/78 07/24/23 02:00 O2 Sat by Pulse Oximetry 100 07/24/23 02:00 Intake & Output: Intake & Output 07/21/23 07/22/23 07/23/23 07/24/23 11:59 11:59 11:59 11:59 Intake Total 4897 1700 200 Output Total 1222 600 Balance 3675 1100 200 Weight 83.915 kg 83.915 kg - Lab Result Diagrams: 07/24/23 04:14 Lab Results-Last 24 Hrs: Lab Results-Last 24 Hours 07/24/23 Range/Units 04:14 WBC 12.1 H (4.0-10.5) x10^3/uL RBC 2.96 L (4.1-5.4) x10^6/uL Hgb 6.7 L* (12.0-16.0) g/dL Hct 22.8 L (35-47) % MCV 77.0 L (78-100) fL MCH 22.6 L (26-32) pg MCHC 29.4 L (32-36) g/dL RDW 15.7 H (11.5-14.0) % Plt Count 250 (150-450) x10^3/uL MPV 10.7 (7.5-11.0) fL Gran % 71.8 H (36.0-66.0) % Immature Gran % (Auto) 0.6 H (0.00-0.4) % Nucleat RBC Rel Count 0.0 (0.00-0.1) % Eos # (Auto) 0.27 (0-0.5) x10^3/uL Immature Gran # (Auto) 0.07 H (0.00-0.03) x10^3u/L Absolute Lymphs (auto) 2.40 (1.0-4.6) x10^3/uL Absolute Monos (auto) 0.63 (0.0-1.3) x10^3/uL Absolute Nucleated RBC 0.00 (0.00-0.01) x10^3u/L Lymphocytes % 19.8 L (24.0-44.0) % Monocytes % 5.2 (0.0-12.0) % Eosinophils % 2.2 (0.00-5.0) % Basophils % 0.4 (0.0-0.4) % Absolute Granulocytes 8.70 H (1.4-6.9) x10^3/uL Basophils # 0.05 (0-0.4) x10^3/uL Micro Results-Entire Visit: Microbiology 07/22/23 02:57 Urine Culture - Final Urine, Indwelling Catheter NO GROWTH Final Diagnosis/Problem List - Final Discharge Diagnosis/Problem (1) Status post primary low transverse section Current Visit: Yes Status: Acute Code(s): Z98.891 - HISTORY OF UTERINE SCAR FROM PREVIOUS SURGERY - Discharge Disposition: Home, Self-Care Condition: Stable Prescriptions: New Ferrous Sulfate 325 mg [Feosol 325 mg] 325 mg PO TID #90 tablet No Action Vortioxetine Hydrobromide [Brintellix] 10 mg PO DAILY Ondansetron ODT 4 MG [Zofran Odt 4 mg] 4 mg PO Q8H PRN PRN PRN Reason: Nausea Follow up with: MIRTA FOLEY MD [Primary Care Provider] - SARA MORILLO MD [ACTIVE STAFF] - 2 weeks (keep incision clean and dry)
[2023-07-24] MEDS: FEOSOL 325 MG PO SCH (09:34)
[2023-07-24] MEDS: PATIENT OWN MEDICATION PO SCH (09:34)
[2023-07-24] MEDS: Docusate Sodium 100 MG PO SCH (09:35)
[2023-07-24] MEDS: TYLENOL EXTRA STRENGTH 500 MG PO PRN (09:35)
[2023-07-24 09:59] VITALS: BP 132/83; PULSE 97; TEMP 97.8
== END 2023-07-24 13:15 | disposition home or self-care (01) | DRG 788 ==
LOC: OB 02:00 → OBSVTOIN 07-22 02:00
PROVIDERS: ADMIT Obstetrics & Gynecology; ATTEND Obstetrics & Gynecology
PROC: 10D00Z1 Extraction of Products of Conception, Low, Open Approach (ICD-10-PCS; principal; 2023-07-22)
DX: O36.8330 Maternal care for abnormalities of the fetal heart rate or rhythm, third trimester, not applicable or unspecified (principal); O69.2XX0 Labor and delivery complicated by other cord entanglement, with compression, not applicable or unspecified; Z3A.39 39 weeks gestation of pregnancy; D64.9 Anemia, unspecified; Z37.0 Single live birth; Z20.828 Contact with and (suspected) exposure to other viral communicable diseases
CPT/HCPCS: 36415; 59510; 64488; 76937; 76942; 80307; 81001; 85025; 85610; 85730; 86850; 86900; 86901; 87086; 90715; 99140; G0378; G0379; J0690; J1100; J1170; J1885; J2405; J2590; J2704; J2795; J3010; L0625; A9270-GY